=== PATIENT | male | born 1970 | race Caucasian/White ===

== ENCOUNTER 2020-10-11 05:05 | Emergency (ER) | payer OTHER ==
[~2020-10-11] VITALS: Ht 172.7 cm; Wt 90.7 kg
[~2020-10-11 05:05] MED LIST: [UNRECOGNIZED DRUG - REMARK]
[2020-10-11 05:30] VITALS: BP 183/117
--- NOTE | 2020-10-11 05:42 | NUR ---
PT AMBULATORY TO BED #4
--- NOTE | 2020-10-11 06:02 | NUR ---
EKG PERFORMED AT BEDSIDE. EKG READS SINUS RHYTHM @ 77
[2020-10-11 06:19] LABS: ALBUMIN 4.2 g/dL (3.4-5.0); ANION GAP 9.8 (8-16); CREATININE 0.9 mg/dL (0.6-1.3); POTASSIUM 3.8 mmol/L (3.5-5.1); TOTAL BILIRUBIN 0.7 mg/dL (0.0-1.0)
[2020-10-11 06:20] LABS: BASOPHILS % (AUTO) 0.3 % (0.0-2.0); EOSINOPHILS # (AUTO) 0.2 K/uL (0-0.4); EOSINOPHILS % (AUTO) 2.6 % (0.0-4.0); HEMATOCRIT 47.7 % (36-52); LYMPHOCYTES # (AUTO) 2.3 K/uL (2.0-11.5); LYMPHOCYTES % (AUTO) 33.7 % (20.5-51.1); MEAN CORPUSCULAR HEMOGLOBIN 31 pg (27-31); MEAN CORPUSCULAR HGB CONC 36 g/dL (33-37); MEAN CORPUSCULAR VOLUME 86.6 fL (80-94); MONOCYTES # (AUTO) 0.5 K/uL (0.8-1.0); MONOCYTES % (AUTO) 7.1 % (1.7-9.3); NEUTROPHILS # (AUTO) 3.8 K/uL (1.8-7.7); NEUTROPHILS % (AUTO) 56.3 % (42.2-75.2); PLATELET COUNT (AUTO) 231 K/uL (140-450); RED BLOOD CELL COUNT(AUTO) 5.51 MIL/uL (4.20-6.10); RED CELL DISTRIBUTION WIDTH 13.4 % (11.6-13.7); WHITE BLOOD COUNT (AUTO) 6.7 K/uL (4.8-10.8)
[2020-10-11] MEDS ORDERED: FAMOTIDINE 20 MG/2 ML VIAL IVP ONE (07:10)
[2020-10-11] MEDS ORDERED: ONDANSETRON 4 MG/2 ML VIAL IVP ONE (07:10)
[2020-10-11] MEDS ORDERED: MORPHINE SULFATE 2 MG/ML SYR IVP ONE (07:10)
--- NOTE | 2020-10-11 07:45 | NUR ---
Ultrasound at bedside
[2020-10-11] MEDS ORDERED: OMEP40EC24 PO (08:46)
[2020-10-11] MEDS ORDERED: ONDA-24 PO (08:46)
[2020-10-11] MEDS ORDERED: LIDOCAINE VISCOUS 2% 20 ML UDC PO ONE (08:50)
[2020-10-11] MEDS ORDERED: ALUMINUM HYD/MAG/SIMETHICONE 30 ML UDC PO ONE (08:50)
[2020-10-11 10:03] LABS: APPEARANCE,URINE CLEAR (CLEAR); BILIRUBIN,URINE NEGATIVE (NEGATIVE); BLOOD, URINE TRACE-L (NEGATIVE); COLOR,URINE YELLOW (YELLOW); LEUKOCYTE ESTERASE ,URINE NEGATIVE (NEGATIVE); NITRITE, URINE NEGATIVE (NEGATIVE); UGLUCOSE NEGATIVE (NEGATIVE)
[2020-10-11] MEDS ORDERED: ASPIRIN 81 MG TAB.CHEW PO ONE (10:25)
[2020-10-11 10:48] LABS: RBC,URINE 0-5 /HPF (0-5); WBC,URINE 0-5 /HPF (0-5)
--- NOTE | 2020-10-11 10:58 | NUR ---
GAGANDEEP SWAB COLLECTED AND WALKED TO LAB
--- NOTE | 2020-10-11 12:00 | NUR ---
Patient to be transferred to [facility]. Is being transferred due to Insurance. Receiving facility has accepting physician and available space. ER physician has signed transfer form. Patient or responsible republican has agreed to transfer and signed form. Patient belongings inventoried and will be sent with patient. Copy of nursing notes, lab reports, EKG, Physicians Orders and X-rays to be sent with patient. Report called to Nani at receiving facility. [facility] ambulance service has been called for transfer. ETA is [id number].
--- NOTE | 2020-10-11 12:06 | NUR ---
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
[2020-10-11 12:17] VITALS: BP 151/74
== END 2020-10-11 12:06 | disposition short-term general hospital (02) ==
LOC: MED 05:05
DX: I24.9 Acute ischemic heart disease, unspecified (principal); E11.9 Type 2 diabetes mellitus without complications; Z20.822 Contact with and (suspected) exposure to COVID-19; Z98.890 Other specified postprocedural states; Z79.899 Other long term (current) drug therapy
CPT/HCPCS: 36415; 71045; 76705; 80053; 81001; 82150; 82948; 83690; 84484; 85025; 87426; 93005; 96374; 96375; 99285; J2270; J2405; J3490